=== PATIENT | female | born 1995 | race Caucasian/White ===

== ENCOUNTER 2023-03-14 14:08 | Outpatient (CLI) | payer OTHER | END 2023-03-14 15:29 | disposition home or self-care (01) | LOC: RAD 14:08 | DX: M54.50 Low back pain, unspecified (principal) ==

== ENCOUNTER 2023-07-25 12:31 | Outpatient (CLI) | payer OTHER ==
[2023-07-25 14:02] LABS: PH,URINE 5.5 (5.0-8.0); URINE APPEARANCE Cloudy; URINE BILIRRUBIN Negative (NEGATIVE); URINE BLOOD Negative; URINE COLOR Yellow; URINE GLUCOSE Negative (NEGATIVE); URINE LEUKOCYTE Small; URINE NITRATE Negative; URINE PROTEIN Negative (NEGATIVE); URINE UROBILINOGEN 0.2 E.U./dl
[2023-07-25 14:06] LABS: URINE EPITHELIAL CELLS 99.7 uL (0.0-38.8); URINE RBC 182.3 uL (0.0-20.8); URINE WBC 77.9 uL (0.0-23.2)
[2023-07-25 14:14] LABS: HEMATOCRIT 35.7 % (36.0-45.00); MEAN CELL VOLUME 81.1 fL (80.00-100.00); MEAN CORPUSCULAR HEMOGLOBIN 27.2 pg (27.00-32.0); MEAN CORPUSCULAR HGB CONC 33.5 g/dl (32.0-36.0); PLATELET COUNT 386 K/uL (150-450); RED CELL DISTRIBUTION WIDTH 13.7 % (11.5-14.5)
[2023-07-25 14:27] LABS: ERYTHROCYTE SEDIMENTATION RATE 60 mm/hr
[2023-07-25 14:51] LABS: ALBUMIN 3.8 gm/dL (3.4-5.0); BILIRUBIN TOTAL 0.26 mg/dL (0.3-1.2); CHOL HDL RATIO 3.2 (0-5.0); CREATININE SERUM 0.75 mg/dL (0.55-1.02); GFR 92.01; GLOBULINA 4.5 G/DL (2.4-3.5); PHOSPHOROUS 3.3 mg/dL (2.5-4.9); POTASSIUM 4.13 mEq/L (3.5-5.1); T4 FREE 0.93 NG/ML (0.76-1.46); T4 TOTAL 7.75 UG/DL (4.8-13.9); TOTAL PROTEIN 8.3 gm/dL (6.4-8.2); TSH 3.3 uIU/mL (0.358-3.74)
[2023-07-25 14:53] LABS: C-REACTIVE PROTEIN 1.15 MG/DL (0.00-0.29)
[2023-07-25 16:49] LABS: T3 TOTAL 1.44 ng/ml (0.846-2.02); VITAMIN D3 25 HYDROXY 26.37 ng/ml (30-120)
[2023-07-27 10:08] LABS: CA 125 11.1 U/mL (0.0-38.1); FOLLICLE STIMULATING HORMONE 1.8 mIU/mL (.); PROLACTIN 17.9 ng/mL (4.8-23.3)
== END 2023-07-25 15:21 | disposition home or self-care (01) ==
LOC: LAB 12:31
DX: Z34.90 Encounter for supervision of normal pregnancy, unspecified, unspecified trimester (principal); N91.2 Amenorrhea, unspecified; E78.5 Hyperlipidemia, unspecified; N95.1 Menopausal and female climacteric states; E23.6 Other disorders of pituitary gland; R19.00 Intra-abdominal and pelvic swelling, mass and lump, unspecified site; N39.0 Urinary tract infection, site not specified; F52.0 Hypoactive sexual desire disorder; E55.9 Vitamin D deficiency, unspecified; N73.9 Female pelvic inflammatory disease, unspecified; A60.04 Herpesviral vulvovaginitis; D64.9 Anemia, unspecified; E11.9 Type 2 diabetes mellitus without complications; E78.2 Mixed hyperlipidemia; K51.511 Left sided colitis with rectal bleeding; M05.739 Rheumatoid arthritis with rheumatoid factor of unspecified wrist without organ or systems involvement; M06.9 Rheumatoid arthritis, unspecified; D44.0 Neoplasm of uncertain behavior of thyroid gland; D68.9 Coagulation defect, unspecified; E53.9 Vitamin B deficiency, unspecified; D11.7 Benign neoplasm of other major salivary glands; M32.8 Other forms of systemic lupus erythematosus

== ENCOUNTER 2023-09-07 11:03 | Outpatient (CLI) | payer OTHER ==
[2023-09-07 11:33] LABS: MEAN CELL VOLUME 80.1 fL (80.00-100.00); MEAN CORPUSCULAR HEMOGLOBIN 26.7 pg (27.00-32.0); MEAN CORPUSCULAR HGB CONC 33.3 g/dl (32.0-36.0); PLATELET COUNT 394 K/uL (150-450); RED CELL DISTRIBUTION WIDTH 14.1 % (11.5-14.5)
[2023-09-07 11:58] LABS: MYCOPLASMA PNEUMONIAE IGM NON REACTIVE (NO REACTIVE)
== END 2023-09-07 12:24 | disposition home or self-care (01) ==
LOC: LAB 11:03
DX: R50.9 Fever, unspecified (principal); J00 Acute nasopharyngitis [common cold]; J11.1 Influenza due to unidentified influenza virus with other respiratory manifestations; B34.9 Viral infection, unspecified; Z13.83 Encounter for screening for respiratory disorder NEC

== ENCOUNTER 2024-03-07 11:16 | Outpatient (CLI) | payer OTHER ==
[2024-03-07 12:04] LABS: HEMATOCRIT 36.2 % (36.0-45.00); HEMOGLOBIN 11.9 g/dL (12.0-15.00); MEAN CELL VOLUME 81.3 fL (80.00-100.00); MEAN CORPUSCULAR HEMOGLOBIN 26.7 pg (27.00-32.0); MEAN CORPUSCULAR HGB CONC 32.9 g/dl (32.0-36.0); PLATELET COUNT 352 K/uL (150-450); RED BLOOD COUNT 4.46 M/uL (4.00-6.00); RED CELL DISTRIBUTION WIDTH 13.1 % (11.5-14.5)
[2024-03-07 12:40] LABS: MYCOPLASMA PNEUMONIAE IGM NON REACTIVE (NO REACTIVE)
[2024-03-07 12:55] LABS: INR 0.98; PARTIAL THROMBOPLASTIN TIME 28.4 SECONDS (22.0-34.0); PROTHROMBIN TIME 10.3 SECONDS (9.0-11.5)
[2024-03-07 12:58] LABS: URINE APPEARANCE Clear; URINE BILIRRUBIN Negative (NEGATIVE); URINE COLOR Yellow; URINE GLUCOSE Negative (NEGATIVE); URINE LEUKOCYTE Negative; URINE NITRATE Negative; URINE PROTEIN Negative (NEGATIVE); URINE UROBILINOGEN 0.2 E.U./dl
[2024-03-07 13:01] LABS: URINE BACTERIA 3181.1 uL (0.0-1933); URINE EPITHELIAL CELLS 46.2 uL (0.0-38.8); URINE RBC 84.1 uL (0.0-20.8); URINE WBC 18.7 uL (0.0-23.2)
[2024-03-07 13:08] LABS: URINE BLOOD TRACES
[2024-03-07 13:17] LABS: ERYTHROCYTE SEDIMENTATION RATE 65 mm/hr
[2024-03-07 13:28] LABS: ALBUMIN 3.9 gm/dL (3.4-5.0); ALKALINE PHOSPHATASE 91 U/L (50-136); ALT/SGPT 40 U/L (12-78); ANION GAP 9 (10.0-20.0); AST/SGOT 21 U/L (15-37); BILIRUBIN TOTAL 0.43 mg/dL (0.3-1.2); BLOOD UREA NITROGEN 15 mg/dL (7-18); BUN CREA RATIO 22 (7.0-25.0); CALCIUM 9.1 mg/dL (8.5-10.1); CARBON DIOXIDE 26 mEq/L (21-32); CHLORIDE 108 mmol/L (98-107); CHOL HDL RATIO 2.9 (0-5.0); CHOLESTEROL 158 mg/dL (0-200); CREATININE SERUM 0.67 mg/dL (0.55-1.02); FREE TRIODOTIRONINE 2.83 pg/ml (2.18-3.98); GFR 104.06; GLUCOSE FASTING 81 mg/dL (65-100); HDL 54 mg/dl (40-60); LDL 87 mg/dl (0-130); OSMOLALITY SERUM 277 MOSM/KG (275-295); PHOSPHOROUS 3.4 mg/dL (2.5-4.9); POTASSIUM 4.14 mEq/L (3.5-5.1); SODIUM 139 mmol/L (136-145); T4 FREE 1.05 NG/ML (0.76-1.46); TOTAL PROTEIN 7.9 gm/dL (6.4-8.2); TRIGLYCERIDES 83 mg/dL (0-150); VLDL 16 (0-39)
[2024-03-07 13:35] LABS: C-REACTIVE PROTEIN 1.09 MG/DL (0.00-0.29); HCG QUANTITATIVE < 1 mUI/mL (1-3)
[2024-03-10 09:10] LABS: FOLLICLE STIMULATING HORMONE 5.6 mIU/mL (.); PROLACTIN 18.5 ng/mL (4.8-33.4)
[2024-03-11 07:05] LABS: chla t Negative (Negative); neiss Negative (Negative)
== END 2024-03-07 11:21 | disposition home or self-care (01) ==
LOC: LAB 11:16
PROVIDERS: ATTEND Personal Emergency Response Attendant
DX: E03.9 Hypothyroidism, unspecified (principal); A49.3 Mycoplasma infection, unspecified site; J11.1 Influenza due to unidentified influenza virus with other respiratory manifestations; R05.9 Cough, unspecified; D64.9 Anemia, unspecified; E11.9 Type 2 diabetes mellitus without complications; E78.2 Mixed hyperlipidemia; N39.0 Urinary tract infection, site not specified; E55.9 Vitamin D deficiency, unspecified; K51.511 Left sided colitis with rectal bleeding; M05.739 Rheumatoid arthritis with rheumatoid factor of unspecified wrist without organ or systems involvement; M06.9 Rheumatoid arthritis, unspecified; D44.0 Neoplasm of uncertain behavior of thyroid gland; R97.8 Other abnormal tumor markers; D68.9 Coagulation defect, unspecified; E53.9 Vitamin B deficiency, unspecified; N93.9 Abnormal uterine and vaginal bleeding, unspecified; N92.5 Other specified irregular menstruation; E22.1 Hyperprolactinemia

== ENCOUNTER 2024-08-28 14:13 | Outpatient (CLI) | payer OTHER ==
[2024-08-28 15:09] LABS: HEMATOCRIT 37.2 % (36.0-45.00); HEMOGLOBIN 12.1 g/dL (12.0-15.00); MEAN CELL VOLUME 81.8 fL (80.00-100.00); MEAN CORPUSCULAR HEMOGLOBIN 26.6 pg (27.00-32.0); MEAN CORPUSCULAR HGB CONC 32.5 g/dl (32.0-36.0); PLATELET COUNT 364 K/uL (150-450); RED BLOOD COUNT 4.54 M/uL (4.00-6.00); RED CELL DISTRIBUTION WIDTH 13.8 % (11.5-14.5)
[2024-08-28 15:20] LABS: ERYTHROCYTE SEDIMENTATION RATE 93 mm/hr
[2024-08-28 15:50] LABS: PH,URINE 5.5 (5.0-8.0); URINE APPEARANCE Clear; URINE BILIRRUBIN Negative (NEGATIVE); URINE BLOOD Large; URINE COLOR Yellow; URINE GLUCOSE Negative (NEGATIVE); URINE KETONE Negative (NEGATIVE); URINE LEUKOCYTE Trace; URINE NITRATE Negative; URINE PROTEIN Negative (NEGATIVE); URINE UROBILINOGEN 0.2 E.U./dl
[2024-08-28 15:53] LABS: URINE EPITHELIAL CELLS 26.4 uL (0.0-38.8); URINE WBC 29.9 uL (0.0-23.2)
[2024-08-28 15:58] LABS: ALBUMIN 3.8 gm/dL (3.4-5.0); BILIRUBIN TOTAL 0.3 mg/dL (0.3-1.2); CALCIUM 9.4 mg/dL (8.5-10.1); CHOL HDL RATIO 3.1 (0-5.0); CREATININE SERUM 0.76 mg/dL (0.55-1.02); GFR 89.97; GLOBULINA 4.2 G/DL (2.4-3.5); POTASSIUM 4.08 mEq/L (3.5-5.1); T4 FREE 0.99 NG/ML (0.76-1.46); TSH 2.16 uIU/mL (0.358-3.74)
[2024-08-29 10:01] LABS: T3 TOTAL 1.21 ng/ml (0.846-2.02); VITAMIN D3 25 HYDROXY 30.16 ng/ml (30-120)
[2024-08-30 12:38] LABS: ESTRADIOL SERUM 43.4 pg/mL (.); FOLLICLE STIMULATING HORMONE 5.3 mIU/mL (.); LEUTEINIZING HORMONE 4.4 mIU/mL (.); PROGESTERONA 0.1 ng/mL (.); PROLACTIN 16.2 ng/mL (4.8-33.4)
== END 2024-08-28 15:12 | disposition home or self-care (01) ==
LOC: LAB 14:13
DX: D64.9 Anemia, unspecified (principal); R73.01 Impaired fasting glucose; R73.09 Other abnormal glucose; I10 Essential (primary) hypertension; E03.9 Hypothyroidism, unspecified; E21.0 Primary hyperparathyroidism; N39.0 Urinary tract infection, site not specified; E78.2 Mixed hyperlipidemia; E78.5 Hyperlipidemia, unspecified; N95.1 Menopausal and female climacteric states; E55.9 Vitamin D deficiency, unspecified; E22.1 Hyperprolactinemia; R89.1 Abnormal level of hormones in specimens from other organs, systems and tissues; Z01.84 Encounter for antibody response examination; M13.80 Other specified arthritis, unspecified site; M25.50 Pain in unspecified joint

== ENCOUNTER 2024-09-24 14:01 | Emergency (ER) | payer OTHER ==
[~2024-09-24] VITALS: Ht 162.6 cm; Wt 108.9 kg
[2024-09-24] MEDS ORDERED: KETOROLAC TROMETHAMINE 30 MG VIAL IM ONE (16:30)
[2024-09-24] MEDS ORDERED: KETOROLAC TROMETHAMINE 30 MG VIAL ONE (16:55)
== END 2024-09-24 17:38 | disposition home or self-care (01) ==
LOC: ER 14:04
DX: N94.6 Dysmenorrhea, unspecified (principal)

== ENCOUNTER 2024-12-27 14:30 | Outpatient (CLI) | payer OTHER ==
[2024-12-27 15:04] LABS: BASO % 0.5 % (0.1-1.2); EOS # 0.09 (0.04-0.54); EOS % 1.5 % (0.7-7.0); HEMATOCRIT 37.3 % (34.1-44.9); HEMOGLOBIN 11.9 g/dL (11.2-15.7); LYMPH # 2.44 (1.18-3.74); LYMPH % 40.5 % (19.3-53.1); MEAN CORPUSCULAR HEMOGLOBIN 25.8 pg (25.6-32.2); NEUT # 2.55 (1.56-6.13); NEUT % 42.3 % (34.0-71.1); PLATELET COUNT 335 K/uL (163-369); RED BLOOD COUNT 4.62 M/uL (3.93-5.22); RED CELL DISTRIBUTION WIDTH 13.6 % (11.6-14.4)
[2024-12-27 15:14] LABS: COVID-19 AG POSITIVE (NEGATIVE)
[2024-12-27 15:21] LABS: INFLUENZA A AG NEGATIVE (NEGATIVE)
[2024-12-27 15:57] LABS: MYCOPLASMA PNEUMONIAE IGM NON REACTIVE (NO REACTIVE)
== END 2024-12-27 14:34 | disposition home or self-care (01) ==
LOC: LAB 14:30
DX: R05.9 Cough, unspecified (principal); R50.9 Fever, unspecified; R09.81 Nasal congestion

== ENCOUNTER → 2025-01-21 13:19 | Outpatient (CLI) | payer OTHER ==
[2025-01-21 14:19] LABS: PH,URINE 5.5 (5.0-8.0); URINE APPEARANCE Clear; URINE BILIRRUBIN Negative (NEGATIVE); URINE BLOOD Trace; URINE COLOR Yellow; URINE GLUCOSE Negative (NEGATIVE); URINE KETONE Negative (NEGATIVE); URINE LEUKOCYTE Trace; URINE NITRATE Negative; URINE PROTEIN Negative (NEGATIVE); URINE UROBILINOGEN 0.2 E.U./dl
[2025-01-21 14:23] LABS: URINE BACTERIA 1417.2 uL (0.0-1933); URINE EPITHELIAL CELLS 20.8 uL (0.0-38.8); URINE RBC 44.3 uL (0.0-20.8); URINE WBC 13.9 uL (0.0-23.2)
[2025-01-21 15:25] LABS: CHOL HDL RATIO 4.1 (0-5.0); CHOLESTEROL 184 mg/dL (0-200); HDL 45 mg/dl (40-60); LDL 114 mg/dl (0-130); TRIGLYCERIDES 124 mg/dL (0-150); VLDL 24 (0-39)
[2025-01-21 15:26] LABS: HCG QUANTITATIVE < 1 mUI/mL (1-3)
[2025-01-23 07:11] LABS: FOLLICLE STIMULATING HORMONE 5.7 mIU/mL (.); LEUTEINIZING HORMONE 8.1 mIU/mL (.); PROGESTERONA < 0.1 ng/mL (.)
[2025-01-23 09:08] LABS: ESTRADIOL SERUM 87.6 pg/mL (.)
== END | disposition home or self-care (01) ==
LOC: LAB 13:19
PROVIDERS: ATTEND General Practice
DX: E03.9 Hypothyroidism, unspecified (principal); N39.0 Urinary tract infection, site not specified; E78.2 Mixed hyperlipidemia; E78.5 Hyperlipidemia, unspecified; Z32.00 Encounter for pregnancy test, result unknown; Z34.01 Encounter for supervision of normal first pregnancy, first trimester; N95.1 Menopausal and female climacteric states; E22.1 Hyperprolactinemia; R89.1 Abnormal level of hormones in specimens from other organs, systems and tissues